=== PATIENT | female | born 1980 | race Caucasian/White ===

== ENCOUNTER 2022-01-15 14:24 | Outpatient (CLI) | payer OTHER, SELFPAY ==
[2022-01-15 21:52] LABS: TSH With Reflex to FT4* < 0.015 uIU/mL (0.270-4.200)
[2022-01-16 00:03] LABS: Free T4 Free Thyroxine* 1.79 ng/dL (0.70-1.85)
== END 2022-01-15 14:25 | disposition home or self-care (01) ==
LOC: NFLDREF 14:25
PROVIDERS: PCP Internal Medicine; Visit Provider Obstetrics & Gynecology
DX: Z01.419 Encounter for gynecological examination (general) (routine) without abnormal findings (principal); E03.9 Hypothyroidism, unspecified; R32 Unspecified urinary incontinence; E66.9 Obesity, unspecified
CPT/HCPCS: 84439; 84443

== ENCOUNTER 2022-03-09 17:42 | Outpatient (CLI) | payer OTHER, SELFPAY ==
--- OUTSIDE RECORDS SUMMARY | 2022-03-09 17:44 | XMS_ITS ---
:1980 Author Organization [facility] Address [address] [place] [address] Care Team Providers Name Role Phone Yarelis Torres Unavailable Unavailable PROBLEMS Type Condition ICD9-CM Code [id number] Code Onset Condition SNO MED Code Dates Status Problem Rectocele N81.6 Active 489931764 Problem Stress N39.3 Active 14146889 incontinence (female) (male) Problem Fecal soiling due R15.9 Active to fecal incontinence Problem Vaginal discharge N89.8 Active 27 9052723 Problem Incomplete R15.0 Active 246440392 defecation Problem Urge urinary N39.41 Active incontinence Problem Full incontinence R15.9 Active 72 571895 of feces Problem Urge incontinence 788.31 Active 87 355209 of urine Problem Uterovaginal N81.2 Active 3955552 02 prolapse, incomplete Problem Mixed N39.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 [address] Jul, [place], [place] [id number] [facility] [address] Jul, After care following [address] [place], [place] [address] genitourinary sy stem Z48.816 [facility] [address] May, After care following [address] [place], [place] [address] genitourinary sy stem Z48.816 [facility] [address] May, After care following [address] [place], [place] [address] genitourinary sy stem Z48.816 [facility] [address] [place] May, [address] [place] [address] [facility] [address] May, [place], [place] [id number] [facility] [address] Mar, [place] [id number] [facility] [address] Mar, Stres s incontinence [address] [place], (female) ( male) N39.3 ; [place] [address] Urge incontinenc e of urine N39.41 ; Incompl ete defecation R15.0 and Rectocele N81.6 [facility] [address] Mar, [address] [address] [facility] [address] Mar, [facility] [address] [place] [address] [facility] [address] Mar, [place], [place] [id number] [facility] [address] Mar, Urina ry incontinence, [facility] [address] [place], unspecifie d type R32 ; [place] [address] Mixed incontinen ce urge and stress N39.4 6 and Rectocele N81.6 [facility] [address] Mar, [place], [place] [phone] [facility] [address] Mar, Mixed incontinence urge [address], and stress N39.46 ; [place] [address] incontinence (fe male) (male) N39.3 ; U rge incontinence of urine N39.41 ; Fecal s oiling due to fecal inconti nence R15.9 ; Incomple te defecation R15.0 and Rectocele N81.6 IMMUNIZATIONS No Known Immunizations SOCIAL HISTORY Qualifiers Date Never Smoker REASON FOR REFERRAL FUNCTIONAL STATUS PLAN OF CARE VITAL SIGNS Height 67.50 in 2018-10-14 Weight 213.2 lbs 2018-10-14 BMI 32.90 kg/m2 2018-10-14 Temperature 98.1 degrees Fahrenheit 2018-05-28 Blood pressure systolic 116 mm Hg 2018-10-14 Blood pressure diastolic 70 mm Hg 2018-10-14 MEDICATIONS Medication Instructions Dosage Frequency Start End Duration Statu s Date Date Oxybutynin Not-Takin g Synthroid 200 Orally Once a 1 tablet on 24h 30 day(s ) Active MCG day an empty stomach in the morning Diflucan 150 Orally Once a 1 tablet 24h May, days Acti ve MG day 2017 Paxil 20 MG Orally Once a 1 tablet in 24h 30 day(s) Active day the morning Ibuprofen oral every 6 1 tab Active 600mg hours as needed Percocet 5-325 Orally every 6 1 tablet as 6h Not-Takin MG hrs needed g Singulair 10 Orally Once a 1 tablet 24h 30 day(s) Ac tive MG day PROCEDURES Procedure Date Ordered Result Body Site CATHETERIZATION COLLECTION SPECIMEN Mar 18, 2018 ELECTRO-UROFLOWMETRY, FIRST Apr 02, 2018 INSERT BLADDER CATHETER September 02, 2018 INTRAABDOMINAL PRESSURE TEST Apr 02, 2018 ANAL/URINARY MUSCLE STUDY Apr 02, 2018 URINALYSIS, AUTO, W/O SCOPE September 02, 2018 URINALYSIS, AUTO, W/O SCOPE Mar 18, 2018 CYSTOMETROGRAM W/SECURITY SYSTEMS TECHNICIAN&UP Apr 02, 2018 URINALYSIS, AUTO, W/O SCOPE Apr 02, 2018 RESULTS Name Result Date Reference Range Urinalysis, Routine - IH Urine Color yellow Yellow - Светлана Appearance clear Clear - Glucose neg Bilirubin neg Ketone neg Specific Delano 1.015 Blood neg pH 7.5 Protein + 15mg Urobilinogen + 1mg Nitrite neg Leukocytes neg Glucose Bilirubin Ketones Specific Delano Occult Blood pH Protein Urobilinogen Nitrite Leukocytes Urinalysis, Routine - IH Urine Color yellow Yellow - Светлана Appearance clear Clear - Glucose neg Bilirubin neg Ketone neg Specific Delano 1.015 Blood neg pH 6.5 Protein neg Urobilinogen 0.2 Nitrite neg Leukocytes neg Glucose Bilirubin Ketones Specific Delano Occult Blood pH Protein Urobilinogen Nitrite Leukocytes Urinalysis, Routine 2018-03-18 Microscopic Examination Urine-Color yellow Yellow - Светлана Appearance clear Clear - Glucose neg Negative - Bilirubin neg Negative - Ketones neg Negative - Specific Delano 1.025 1.000 - 1.030 Occult Blood neg Negative - pH 6.5 5.0 - 7.0 Protein neg Negative - Urobilinogen 1mg 0.2 - 1.0 mg/dL Nitrite, Urine neg Negative - Leukocytes neg Negative - Urinalysis Gross Exam REASON FOR VISIT Insurance Providers [facility] Health Member Patient Patient Patient Patient Patient Subscriber Subscriber Subscriber Group Insurance Plan Plan Plan Plan ID Relationship Address Phone Name Date of ID Name Date of No Type Insurance Insurance Insurance Coverage to Subscriber Address Phone Name Dates Preferred [address] Preferred self Tez [id number] One [facility] [address] [id number] MEDICAL (GENERAL) HISTORY Type Description Date Medical History High Cholesterol Medical History Bladder Infections Medical History Chicken pox Medical History Migraines Medical History Depression/ Anxiety Medical History Asthma Medical History Pneumonia Medical History Thyroid Problem Surgical History Jaw Surgery 03/1997 Surgical History MIDURETHRAL SLING, CYSTOSCOPY, RECTOCELE REPAIR with 05/26/2018 Melissa
--- OUTSIDE RECORDS SUMMARY | 2022-03-09 17:44 | XMS_ITS | Clinical Summary ---
:1980 Author Organization [id number] [place] [address] Care Team Providers Name Role Phone Prince Mayorga MD Primary Care Provider [phone] Allergies Active Allergy Reactions Severity Noted Date Comments Venlafaxine Analogues Other - Describe In Comment Field 06/26/2013 sweating Sertraline Diarrhea 06/26/2013 Medications Medication Sig Dispensed Refills Start Date End Date Status CALCIUM 600 MG CAP Once daily 0 03/20/2007 Active MULTIVITAMIN TAB take 1 tablet by 0 02/02/2008 Active oral route once daily with food flaxseed-omega3,6,9-fa Take 1,200 mg by 200 capsule 0 03/08/20 11 Active tty acid 1,200-540-132 mouth 2 times mg Cap daily and at bedtime. vitamin B complex Take 1 tablet by 200 tablet 0 03/08/2011 Active (VITAMIN B COMPLEX) mouth once tablet daily. tretinoin 0.05 % 0.05 Apply topically 90 g 3 06/29/2020 Active % creamIndications: to affected Keratosis pilaris area(s) at bedtime. busPIRone (BUSPAR) 15 Take 15 mg by 0 06/01/2021 Active mg tablet mouth 2 times daily. norethindrone, Take 1 Tablet 84 Tablet 3 06/27/2021 Active Contraceptive, (0.35 mg) by (MICRONOR, 28,) 0.35 mouth once mg tabletIndications: daily. In place Dysmenorrhea of Qian SUMAtriptan (IMITREX) Take 1-2 Tablets 27 Tablet 3 06/27/2021 Active 50 mg (50-100 mg) by tabletIndications: mouth every 2 Migraine syndrome hours if needed for Migraine. Give at minimum 2hrs apart. Max Dose: 200mg per 24hrs. ondansetron (ZOFRAN Place 1 Tablet 30 Tablet 1 07/31/2021 Active ODT) 4 mg (4 mg) on the disintegrating tongue every 8 tabletIndications: hours if needed Migraine syndrome for Nausea/Vomiting. montelukast Take 1 Tablet 90 Tablet 3 07/31/2021 Act xu (SINGULAIR) 10 mg (10 mg) by mouth tabletIndications: at bedtime. Other allergic rhinitis, Allergy-induced asthma, mild intermittent, uncomplicated cholecalciferol, Take 2 Tablets 0 07/31/2021 Active Vitamin D3, (Vitamin (10,000 units) D-3) 5,000 unit tab by mouth once tabletIndications: daily. Vitamin D deficiency fluticasone Inhale 1 Puff by 3 Each 3 07/31/2021 Active propion-salmeteroL mouth every 12 (Advair Diskus) 500-50 hours. mcg/Dose diskus inhalerIndications: Allergy-induced asthma, mild intermittent, uncomplicated Synthroid 150 mcg Take 1 Tablet 90 Tablet 0 01/16/2022 Active tabletIndications: (150 mcg) by Other specified mouth before hypothyroidism breakfast. Take 1 every other day and alternate with 175 mcg every other day Active Problems Problem Noted Date Migraine syndrome 06/27/2021 Allergy-induced asthma, mild intermittent, uncomplicat ed 07/30/2017 Other allergic rhinitis 07/30/2017 Mixed hyperlipidemia 07/30/2017 Recurrent major depressive disorder, in partial remiss ion 10/07/2015 Anxiety 05/11/2014 Keratosis pilaris 06/03/2012 Vitamin D deficiency 08/16/2009 IBS (irritable bowel syndrome) 05/06/2008 Other specified hypothyroidism Resolved Problems Problem Noted Date Resolved Date Major depressive disorder, recurrent episode, unspecified 10/07/2015 Allergic rhinitis, cause unspecified Encounters Date Type Specialty Care Team Description 01/16/2022 Telephone Prince Mayorga MD Ri dication Management 01/16/2022 Lab Requisition Jaylin Negrete MD 01/15/2022 Orders Only Scanner <No scans attac hed> 12/14/2021 Telephone Prince Mayorga MD La b 12/13/2021 Orders Only Lab, [facility] 12/13/2021 Travel from Last 3 Months Immunizations Name Administration Dates Next Due AMB Influenza, IIV4 PF (=>6 mos 04/20/2016, 05/07/2014 Flulaval,Fluzone Fluarix)(Flu Clinic Only) COVID-19 vaccine ([employer] 07/26/2020, 06/28/2020 30mcg/0.3mL) PF, MDV Hepatitis B (Adult) 08/10/2002, 02/06/2002, 01/06/2002 Influenza RIV4 (Age 18+ Years) 04/01/2019 PRESERV FREE Influenza, IIV3 (Age >=3 years) 05/07/2020, 03/31/2018, 04/01, 06/03/2012, 03/18/2009, 04/28/2004 Influenza, IIV4 04/08/2017, 04/20/2016, 04/06/2015, 05/07/2014 Influenza, IIV4 (=>6mos) MDV 03/29/2021 Td (Age >=7 Years) 03/25/2003 Td, Preservative Free (age >= 7 09/21/2014 Years) Tdap 12/13/2009 Family History Medical History Relation Name Comments Hyperlipidemia Father Hypertension Father Other Father migraine Arthritis Maternal Grandmother Cancer-breast Maternal Grandmother late 60's Osteoporosis Maternal Grandmother Other Maternal Grandmother glaucoma Arthritis Mother Osteoporosis Mother Other Mother migraine/emphyse ma Stroke Paternal Grandfather Diabetes Paternal Grandmother Heart Disease Paternal Grandmother heart attac k 80's Other Sister chronic bronchit is Relation Name Status Comments Father Maternal Grandmother Mother Paternal Grandfather Paternal Grandmother Sister Social History Tobacco Use Types Packs/Day Years Used Date Former Smoker Quit: 07/01/19 Smokeless Tobacco: Never Used Tobacco Cessation: Counseling Given: Yes Alcohol Use Standard Drinks/Week Comments No 0 (1 standard drink = 0.6 oz pure alcoho l) Sex Assigned at Date Recorded Female 09/26/2020 7:44 AM CDT Obstetrics History Para Term AB IAB SAB Ectopic Multiple Living Live Births 4 2 2 1 1 2 Date Outcome GA Total Labor/2nd/3rd Weight Sex Delivery Anes PTL Kristin A 1 A5 Name Clin Labor Para Para IAB SAB Last Filed Vital Signs Vital Sign Reading Time Taken Comments Blood Pressure 114/77 07/31/2021 4:13 PM SOCIOCULTURAL ANTHROPOLOGY PROFESSOR Pulse 88 07/31/2021 4:13 PM SOCIOCULTURAL ANTHROPOLOGY PROFESSOR Temperature 36.6 ??C (97.9 ??F) 05/19/2018 8:48 AM SOCIOCULTURAL ANTHROPOLOGY PROFESSOR Respiratory Rate - - Oxygen Saturation 100% 07/31/2021 4:13 PM SOCIOCULTURAL ANTHROPOLOGY PROFESSOR Inhaled Oxygen Concentration - - Weight 96.6 kg (212 lb 14.4 oz) 07/31/2021 4:13 PM SOCIOCULTURAL ANTHROPOLOGY PROFESSOR Height 175.3 cm (5' 9) 07/31/2021 4:13 PM SOCIOCULTURAL ANTHROPOLOGY PROFESSOR Body Mass Index 31.44 07/31/2021 4:13 PM SOCIOCULTURAL ANTHROPOLOGY PROFESSOR Plan of Treatment Health Maintenance Due Date Last Done Comments Pneumococcal series for age 19-64 1984 (1 - PCV) Hepatitis C screening for age 1105/20/1996 18-79 Influenza for age 9-49 03/01/2022 03/29/2021, 05/07/2020, 04/01/2019, Additional history exists BMI (ht and wt on same day) for 07/31/2022 07/31/2021, 03/2 03/2021, age 18+ 06/29/2020, Additional history exists Depression screening for age 12+ 08/02/2022 08/02/2021, , 12/24/2020, Additional history exists Tetanus booster 09/21/2024 09/21/2014, 12/13/2009, 03/25/2003 Pap test for age 21-65 01/15/2025 01/15/2022, 01/15/2022, 01/18/2016, Additional history exists Tdap Completed 12/13/2009, 12/13/2009 COVID-19 vaccine series Completed 03/29/2021, 07/26/2020, 06/28/2020 Procedures Procedure Name Priority Date/Time Associated Diagnosis Comme nts LAB TRACKING EVENT Routine 01/15/2022 1:45 PM CDT CAT CRACKER OPERATOR THIN PREP PAP Routine 01/15/2022 1:45 PM Resu lts for this SCREEN IMAGED CDT procedure are in the results section. HPV THIN PREP Routine 01/15/2022 1:45 PM Results for this CDT procedure are i n the results section. SCAN-LABORATORY 01/15/2022 12:00 Results for this REPORT AM CDT procedure are i n the results section. TSH Routine 12/13/2021 8:29 AM Other specified Result s for this CDT hypothyroidism procedure are in the results section. from Last 3 Months Results LAB TRACKING EVENT (01/15/2022 1:45 PM CDT) Specimen Anatomical Collection Method Collection Time Receive d Time (Source) Location / / Volume Laterality Other (Other) Client Collect / 01/15/2022 1:45 PM 12/29 4:17 Unknown CDT PM CDT Jaylin Negrete MD LAB BILL ONLY Performing Organization Address City/State/ZIP Code Phon e Number [employer] [address] [place] [address] LABORATORY-CENTRAL 2000 LABORATORY CAT CRACKER OPERATOR THIN PREP PAP SCREEN IMAGED (01/15/2022 1:45 PM CDT) Component Value Ref Test Analysis Performed At [facility] gist Range Method Time Signature Case Report Gynecologic Cytology Report ? Case: [id number] ? 01/31/2022 [facility] Authorizing Provider: ??Jaylin Camacho ?Collected: ? 01/15/2022 1345 ? 2:11 PM HEAL TH ? MD Allison ? CDT LABORATORY-C Ordering Location: ? [facility] CENTRAL LAB ?Received: ?01/18/2022 1625 ? EN TRAL First Screen: ? [place] ? LABORATORY Specimen: ?CAT CRACKER OPERATOR ThinPrep Vial Screening, Cervical ? INTERPRETATI NEGATIVE FOR (none) 01/31/2022 [facility] Nessa ctronically ON/RESULT INTRAEPITHELIAL 2:11 PM HEALTH sign ed by LESION OR CDT LABORATORY-C Tania MALIGNANCY (NIL) ENTRAL Chr istopher A on LABORATORY 01/31/2022 at 2:11 PM SPECIMEN Satisfactory for evaluation 01/31/2022 [facility] ADEQUACY Endocervical component present 2:11 PM HEALTH CDT LABORATORY-C ENTRAL LABORATORY HPV REQUEST HPV and PAP 01/31/2022 [facility] 2:11 PM HEALTH CDT LABORATORY-C ENTRAL LABORATORY Date of LMP 01/31/2022 [facility] 2:11 PM HEALTH CDT LABORATORY-C ENTRAL LABORATORY Comment: unknown Last Pap Date 01/31/2022 2:11 PM CDT [facility] LABORAT[facility]-CENTRAL LABORATORY Comment: 2020 Last Pap Result NIL 01/31/2022 2:11 PM [facility] CDT LABORATORY-CENTRAL LABORATORY Abnormal Pap or Freedom No 01/31/2022 2:11 PM [facility] Bx in last 5 years CDT LABORATORY- CENTRAL LABORATORY Menstrual Status Regular Periods 01/31/2022 2:11 P M [facility] CDT LABORATORY-CENTRAL LABORATORY Freedom Bx Done Today No 01/31/2022 2:11 PM [facility] CDT LABORATORY-CENTRAL LABORATORY Additional 01/31/2022 2:11 PM [facility] Information CDT LABORATORY-CENTRAL LABORATORY Comment: Interpreted at [facility], Central Laboratory - [address], [place] [address] Automated Review Successful 01/31/2022 2:11 PM CDT [facility] LABORATORY-CENTRAL L ABORATORY Comment: Specimen processed successfully by automated baggage porter device, ThinPrep Imaging System, [employer] ANCILLARY TESTING HPV Ordered, 01/31/2022 2:11 PM [facility] CAT CRACKER OPERATOR Please see CDT LABORATORY-CENTRAL separate report LABORATORY Note The pap test is a 01/31/2022 2:11 PM [facility] screening CDT LABORATORY-CENTRAL technique, not a LABORATORY diagnostic procedure. It is used primarily to screen for squamous cancers and precursor lesions. Published studies have shown that it is subject to both false negative and false positive results. The pap test should not be used as the sole means to diagnose or exclude pre-malignant and malignant lesions. Specimen Anatomical Collection Method Collection Time Receive d Time (Source) Location / / Volume Laterality Other (Cervical) 01/15/2022 1:45 PM 01/18 4:25 CDT PM CDT Jaylin Negrete MD PATHOLOGY/CYTOLOGY Performing Organization Address City/[facility] Code Phon e Number [facility] [address] [place] [id number] LABORATORY-CENTRAL 2000 LABORATORY HPV HIGH RISK (01/15/2022 1:45 PM CDT) Analysis Performed At Patho logist Time Signature TYPE 16 Negative Negative 01/22/2022 [facility] 12:24 PM CDT LABORATORY-STEPHANIE TRAL LABORATORY TYPE 18 Negative Negative 01/22/2022 [facility] 12:24 PM CDT LABORATORY-STEPHANIE TRAL LABORATORY OTHER HIGH Negative Negative 01/22/2022 [facility] RISK TYPES 12:24 PM CDT LABORATORY-STEPHANIE TRAL LABORATORY Specimen Anatomical Collection Method Collection Time Receive d Time (Source) Location / / Volume Laterality Other (Cervical) 01/15/2022 1:45 PM 01/18 4:25 CDT PM CDT Narrative [facility] LABORATORY-CENTRAL LABORAT ORY - 01/22/2022 12:24 PM CDT HPV types 16, 18, 31, 33, 35, 39, 45, 51, 52, 56, 58, 59, 66 and 68 DNA were undetectable or below the pre-set threshold. Methodology: Colt Danielle 4800 HPV Test Jaylin Negrete MD MICROBIOLOGY Performing Organization Address City/[facility] Phon e Number [facility] [employer] [address] [place] [address] LABORATORY-CENTRAL 2000 LABORATORY SCAN-LABORATORY REPORT (01/15/2022 12:00 AM CDT) Narrative This result has an attachment that is no t available. Scanner OTHER TSH (12/13/2021 8:29 AM CDT) athologist Signature TSH 12/14/2021 [facility] 9:47 AM CDT LABORATORY-CENTR AL LABORATORY Comment: Canceled- Quantity not sufficient(QNS) This is a corrected result. Previously r eported as 0.01 uIU/mL with reference range 0.35-4.94 uIU/mL on 12/13/2021 at 1920 CDT Specimen Anatomical Collection Method Collection Time Receive d Time (Source) Location / / Volume Laterality Blood BLOOD SPECIMEN / Capillary / 12/13/2021 8:29 AM 12/13 8:29 Unknown Unknown CDT AM CDT Narrative [facility] LABORATORY-CENTRAL LABORAT ORY - 12/14/2021 9:47 AM CDT In Adults, TSH values between 5.00 and 10.00 uIU/ml do not necessarily indicate the presence of Hyp othyroidism. Correlation with clinical findings such as presence of goiter and/or Thyroperoxidase (TPO) Antibody ma y be helpful. For more information please refer to JAN 20 04; 291: 228-238. Canceled- Quantity not sufficient(QNS) Prince Mayorga MD CHEMISTRY Performing Organization Address City/State/ZIP Code Phon e Number [facility] [employer] [address] 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
== END 2022-03-09 17:43 | disposition home or self-care (01) ==
LOC: LKVREF 17:42
PROVIDERS: PCP Family Medicine; Visit Provider Registered Nurse
DX: R30.0 Dysuria (principal); N30.90 Cystitis, unspecified without hematuria
CPT/HCPCS: 87086

== ENCOUNTER 2022-04-23 13:18 | Outpatient (CLI) | payer OTHER, SELFPAY ==
--- OUTSIDE RECORDS SUMMARY | 2022-04-23 13:23 | XMS_ITS | Clinical Summary ---
:1980 Author Organization [facility] [place] [address] Care Team Providers Name Role Phone Hardik Fan MD Primary Care Provider Allergies Active Allergy Reactions Severity Noted Date Comments Venlafaxine Analogues Other - Describe In Comment Field 06/26/2013 sweating Sertraline Diarrhea 06/26/2013 Medications Medication Sig Dispensed Refills Start End Date Status Date CALCIUM 600 MG CAP Once daily 0 Active 7 MULTIVITAMIN TAB take 1 tablet 0 Active by oral route 8 once daily with food flaxseed-omega3,6,9 Take 1,200 mg 200 capsule 0 Active -fatty acid by mouth 2 1 1,200-540-132 mg times daily Cap and at bedtime. vitamin B complex Take 1 tablet 200 tablet 0 Active (VITAMIN B COMPLEX) by mouth once 1 tablet daily. tretinoin 0.05 % Apply 90 g 3 Act xu 0.05 % topically to 0 creamIndications: affected Keratosis pilaris area(s) at bedtime. busPIRone (BUSPAR) Take 15 mg by 0 Active 15 mg tablet mouth 2 times 1 daily. norethindrone, Take 1 Tablet 84 Tablet 3 A ctive Contraceptive, (0.35 mg) by 1 (MICRONOR, 28,) mouth once 0.35 mg daily. In tabletIndications: place of Dysmenorrhea Qian SUMAtriptan Take 1-2 27 Tablet 3 Active (IMITREX) 50 mg Tablets 1 tabletIndications: (50-100 mg) Migraine syndrome by mouth every 2 hours if needed for Migraine. Give at minimum 2hrs apart. Max Dose: 200mg per 24hrs. ondansetron (ZOFRAN Place 1 30 Tablet 1 Active ODT) 4 mg Tablet (4 mg) 2 disintegrating on the tongue tabletIndications: every 8 hours Migraine syndrome if needed for Nausea/Vomiti ng. montelukast Take 1 Tablet 90 Tablet 3 Acti ve (SINGULAIR) 10 mg (10 mg) by 2 tabletIndications: mouth at Other allergic bedtime. rhinitis, Allergy-induced asthma, mild intermittent, uncomplicated fluticasone Inhale 1 Puff 3 Each 3 Acti ve propion-salmeteroL by mouth 2 (Advair Diskus) every 12 500-50 mcg/Dose hours. diskus inhalerIndications: Allergy-induced asthma, mild intermittent, uncomplicated cholecalciferol, Take this 0 Act xu Vitamin D3, dose every 2 (Vitamin D-3) 5,000 day unit tab tabletIndications: Vitamin D deficiency levothyroxine Take 1 Tablet 90 Tablet 1 Ac tive (SYNTHROID) 137 mcg (137 mcg) by 2 tabletIndications: mouth before Other specified breakfast. hypothyroidism cholecalciferol, Take 2 0 04/12/20 Dis continued Vitamin D3, Tablets 2 22 (Reorder (Vitamin D-3) 5,000 (10,000 (E-cancel not unit tab units) by sent)) tabletIndications: mouth once Vitamin D daily. deficiency Synthroid 150 mcg Take 1 Tablet 90 Tablet 0 04/12/20 Discontinued tabletIndications: (150 mcg) by 2 22 (Reorder Other specified mouth before ( E-cancel not hypothyroidism breakfast. sent )) Take 1 every other day and alternate with 175 mcg every other day Synthroid 150 mcg Take 1 Tablet 90 Tablet 0 04/12/20 Discontinued tabletIndications: (150 mcg) by 2 22 (Reorder Other specified mouth before ( E-cancel not hypothyroidism breakfast. sent )) Take 1 every other day and alternate with 175 mcg every other day cholecalciferol, Take this bang 0 04/12/20 Discontinued Vitamin D3, every other 2 22 (Reord er (Vitamin D-3) 5,000 day (E-cancel not unit tab sent)) tabletIndications: Vitamin D deficiency cholecalciferol, Take this 0 04/13/20 Dis continued Vitamin D3, dose every 2 22 (Reorde r (Vitamin D-3) 5,000 other day (E-cancel not unit tab sent)) tabletIndications: Vitamin D deficiency Synthroid 150 mcg Take 1 Tablet 90 Tablet 3 04/19/20 Discontinued tabletIndications: (150 mcg) by 2 22 (Reorder Other specified mouth before ( E-cancel not hypothyroidism breakfast. sent )) Active Problems Problem Noted Date Prediabetes 04/12/2022 Migraine syndrome 06/27/2021 Allergy-induced asthma, mild intermittent, [...] Encounters Date Type Specialty Care Team Description 04/13/2022 E-Visit Jada, Provider 04/12/2022 Office Visit Prince Mayorga MD [place] dication Management 04/12/2022 Travel 04/09/2022 Travel from Last 3 Months Immunizations Name Administration Dates Next Due AMB Influenza, IIV4 PF (=>6 mos 04/20/2016, 05/07/2014 Flulaval,Fluzone Fluarix)(Flu Clinic Only) COVID-19 vaccine (Functional Neuromodulation 03/28/2022 30mcg/0.3mL) 12YO+ BIVALENT BOOSTER PF, MDV COVID-19 vaccine (Functional Neuromodulation 07/26/2020, 06/28/2020 30mcg/0.3mL) PF, MDV Hepatitis B (Adult) 08/10/2002, 02/06/2002, 01/06/2002 Influenza RIV4 (Age 18+ Years) 04/01/2019 PRESERV FREE Influenza, IIV3 (Age 6-35 mos) 04/06/2020, 04/02/2018 Influenza, IIV3 (Age >=3 years) 05/07/2020, 03/31/2018, [...] Date Recorded Female 09/26/2020 7:44 AM CDT COVID-19 Exposure Response Date Recorded In the last 10 days, have you been in contact with No / Unsu re 04/12/2022 9:27 AM CDT someone who was confirmed or suspected to have Coronavirus/COVID-19? Obstetrics History Para Term AB IAB SAB Ectopic Multiple Living Live Births 4 2 2 1 1 2 Date Outcome GA Total Labor/2nd/3rd Weight Sex Delivery Anes PTL Kristin A 1 A5 Name Clin Labor Para Para IAB SAB Last Filed Vital Signs Vital Sign Reading Time Taken Comments Blood Pressure 116/77 04/12/2022 9:33 AM CDT Pulse 77 04/12/2022 9:33 AM CDT Temperature 36.6 ??C (97.9 ??F) 05/19/2018 8:48 AM CUFF RUNNER Respiratory Rate - - Oxygen Saturation 99% 04/12/2022 9:33 AM CDT Inhaled Oxygen Concentration - - Weight 90.3 kg (199 lb) 04/12/2022 9:33 AM CDT Height 175.3 cm (5' 9) 04/12/2022 9:33 AM CDT Body Mass Index 29.39 04/12/2022 9:33 AM CDT Plan of Treatment Health Maintenance Due Date Last Done Comments Pneumococcal series for age 19-64 1984 (1 - PCV) Hepatitis C screening for age 1105/20/1996 18-79 Influenza for age 9-49 03/01/2022 03/29/2021, 05/07/2020, 04/01/2019, Additional history exists Depression screening for age 12+ 08/02/2022 08/02/2021, , 12/24/2020, Additional history exists BMI (ht and wt on same day) for 04/12/2023 04/12/2022, 07/03, age 18+ 09/26/2020, Additional history exists Tetanus booster 09/21/2024 09/21/2014, 12/13/2009, 03/25/2003 Pap test for age 21-65 01/15/2025 01/15/2022, 01/15/2022, 01/18/2016, Additional history exists Tdap Completed 12/13/2009, 12/13/2009 COVID-19 vaccine series Completed 03/28/2022, 03/29/2021, 07/26/2020, Additional history exists Procedures Procedure Name Priority Date/Time Associated Diagnosis Comme nts HEMOGLOBIN A1C Routine 04/12/2022 10:11 Prediabetes Results f or this SCREENING AM CDT procedure are i n the results section. VITAMIN D 25 Routine 04/12/2022 10:11 Vitamin D deficiency Res ults for this (DEFICIENCY) AM CDT procedure are i n the results section. LIPID PANEL W Routine 04/12/2022 10:11 Mixed hyperlipidemia Re sults for this REFLEX MEASURED LDL AM CDT procedur e are in the results section. TSH Routine 04/12/2022 10:11 Other specified Results for this AM CDT hypothyroidism procedure are in the results section. from Last 3 Months Results HEMOGLOBIN A1C SCREENING (04/12/2022 10:11 AM CDT) P athologist Signature HEMOGLOBIN A1C 5.0 <=6.4 % 04/13/2022 [facility] SCREENING 12:25 PM CDT LABORATORY Specimen Anatomical Collection Method / Collection Time Recei jaron Time (Source) Location / Volume Laterality Blood BLOOD SPECIMEN / Venipuncture / 04/12/2022 10:11 04/12 Unknown Unknown AM CDT 10:11 AM CDT Narrative [facility] - 04/13/2022 12:25 PM CDT ? (<5.7%) ?Normal ? (5.7% to 6.4%) ? Indicates pr ediabetes ? (>=6.5%) ? Confirms diabetes Falsely low levels may be seen with: Recent Transfusion, Recent Significant B lood Loss, Hemolytic Diseases, or Falsely elevated levels may be seen with : Untreated Anemias, Splenectomy Prince Mayorga MD CHEMISTRY Performing Organization Address City/State/ZIP Code Phon e Number [facility] SENDOUT INTERNAL ZIP [place] [id number] [place] [address] LIPID PANEL W REFLEX MEASURED LDL (04/12/2022 10:11 AM CDT) Patholo gist Method Time Signature CHOLESTEROL,TOTAL 179 100 - 199 04/13/2022 [facility] mg/dL 3:15 AM CDT LABORATORY-[facility] TRIGLYCERIDES 87 <150 04/13/2022 [facility] mg/dL 3:15 AM CDT [facility]AT[facility] HDL CHOLESTEROL 44 >40 mg/dL 04/13/2022 [facility] 3:15 AM CDT [facility]AT[facility] NON-HDL 135 <145 04/13/2022 [facility] CHOLESTEROL mg/dl 3:15 AM CDT [facility]ATORY[facility] CHOL/HDL RATIO 4.07 <4.50 04/13/2022 [facility] 3:15 AM CDT [facility] LDL CHOLESTEROL 118 <=130 04/13/2022 [facility] mg/dL 3:15 AM CDT [facility]ATORY[facility] VLDL CHOLESTEROL 17 <=30 04/13/2022 [facility] mg/dL 3:15 AM CDT [facility] PROVIDER ORDERED RANDOM 04/13/2022 [facility] STATUS 3:15 AM CDT LAB[facility]AT[facility] Specimen Anatomical Collection Method / Collection Time Recei jaron Time (Source) Location / Volume Laterality Blood BLOOD SPECIMEN / Venipuncture / 04/12/2022 10:11 04/12 Unknown Unknown AM CDT 10:11 AM CDT Prince Mayorga MD CHEMISTRY Performing Organization Address City/[facility] Phon e Number [facility] [address] [place] [address] LABORATORY-CENTRAL 2000 LABORATORY (ABNORMAL) VITAMIN D 25 (DEFICIENCY) (04/12/2022 10:11 AM CDT) Analysis Performed At Patho logist Time Signature VITAMIN D 26.0 (L) 30.0 - 04/13/2022 [facility] TOTAL 80.0 ng/mL 3:41 AM CDT LABORATORY-[facility] LABOR[facility] Specimen Anatomical Collection Method / Collection Time Recei jaron Time (Source) Location / Volume Laterality Blood BLOOD SPECIMEN / Venipuncture / 04/12/2022 10:11 04/12 Unknown Unknown AM CDT 10:11 AM CDT Narrative [facility] LABORATORY-CENTRAL LABORAT ORY - 04/13/2022 3:41 AM CDT Deficiency: ? <20 ng/mL Insufficiency: ?20-29 ng/mL Sufficiency: ?30-80 ng/mL Possible Toxicity: ??>80 ng/mL Based on [facility] recommend ations Prince Mayorga MD SEND OUTS Performing Organization Address City/[facility] Phon e Number [facility] [address] [place] [address] LABORATORY-CENTRAL 1999 LABORATORY (ABNORMAL) TSH (04/12/2022 10:11 AM CDT) P athologist Signature TSH <0.01 (L) 0.35 - 04/13/2022 [facility] 4.94 5:27 AM CDT LABORATORY-CENT uIU/mL RAL LABORATORY Specimen Anatomical Collection Method / Collection Time Recei jaron Time (Source) Location / Volume Laterality Blood BLOOD SPECIMEN / Venipuncture / 04/12/2022 10:11 04/12 Unknown Unknown AM CDT 10:11 AM CDT Narrative [facility] LABORATORY-CENTRAL LABORAT ORY - 04/13/2022 5:27 AM CDT In Adults, TSH values between 5.00 and 10.00 uIU/ml do not necessarily indicate the presence of Hyp othyroidism. Correlation with clinical findings such as presence of goiter and/or Thyroperoxidase (TPO) Antibody ma y be helpful. For more information please refer to JAN 20 ; 291: 228-238. Prince Mayorga MD CHEMISTRY Performing Organization Address City/State/ZIP Code Phon e Number [facility] [address] 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
--- OUTSIDE RECORDS SUMMARY | 2022-04-23 13:23 | XMS_ITS ---
:1980 Author Organization [facility] Address [address] [place] [address] Care Team Providers Name Role Phone Yarelis Torres Unavailable Unavailable PROBLEMS Type Condition ICD9-CM Code MEA23-IT Code Onset Condition SNO MED Code Dates Status Problem Rectocele N81.6 Active 816538594 Problem Stress N39.3 Active 87281635 incontinence (female) (male) Problem Fecal soiling due R15.9 Active to fecal incontinence Problem Vaginal discharge N89.8 Active 27 4058355 Problem Incomplete R15.0 Active 731645902 defecation Problem Urge urinary N39.41 Active incontinence Problem Full incontinence R15.9 Active 72 456018 of feces Problem Urge incontinence 788.31 Active 87 891142 of urine Problem Uterovaginal N81.2 Active 8328530 02 prolapse, incomplete Problem Mixed N39.46 Active 257484694 incontinence urge and stress Problem Urge incontinence N39.41 Active 87 654566 of urine ALLERGIES No Known Allergies ENCOUNTERS Encounter Location Date Diagnosis [facility] [address] Sep, Urge urinary incontinence [address] [place], N39.41 [place] [address] discharge N89.8 [facility] [address] Aug, Urge urinary incontinence [address] [place], [place]39.41 [place] [address] discharge N89.8 [facility] [address] Jul, [place], [place] [id number] [facility] [address] Jul, After care following [address] [place], [place] [address] genitourinary sy stem Z48.816 [facility] [address] May, After care following [address] [place], [place] [address] genitourinary sy stem Z48.816 [facility] [address] May, After care following [address] [place], [place] [address] genitourinary sy stem Z48.816 [facility] [address] [place] May, [address] [place] [phone] [facility] [address] May, [place], [place] [phone] [facility] [address] Mar, [place], [place] [phone] [facility] [address] Mar, Stres s incontinence [address] [place], (female) ( male) N39.3 ; [place] [address] Urge incontinenc e of urine N39.41 ; Incompl ete defecation R15.0 and Rectocele N81.6 [facility] [address] Mar, [address] [address] [facility] [address] Mar, [facility] [address] [place] [address] [facility] [address] Mar, [place], [place] [phone] [facility] [address] Mar, Urina ry incontinence, [facility] [address] [place], unspecifie d type R32 ; [place] [address] Mixed incontinen ce urge and stress N39.4 6 and Rectocele N81.6 [facility] [address] Mar, [place], [place] [phone] [facility] [address] Mar, Mixed incontinence urge [address], and stress N39.46 ; [place] [address] incontinence (fe male) (male) N39.3 ; U [...] Orally Once a 1 tablet 24h May, 2 days Acti ve MG day 2017 Paxil [...] PROCEDURES Procedure Date Ordered Result Body Site ELECTRO-UROFLOWMETRY, FIRST Apr 02, 2018 CATHETERIZATION COLLECTION SPECIMEN Mar 18, 2018 INTRAABDOMINAL PRESSURE TEST Apr 02, 2018 CYSTOMETROGRAM W/LUMBER PULLER&UP Apr 02, 2018 ANAL/URINARY MUSCLE STUDY Apr 02, 2018 URINALYSIS, AUTO, W/O SCOPE Mar 18, 2018 URINALYSIS, AUTO, W/O SCOPE September 02, 2018 INSERT BLADDER CATHETER September 02, 2018 URINALYSIS, AUTO, W/O SCOPE Apr 02, 2018 RESULTS Name Result Date Reference Range Urinalysis, Routine - IH Urine Color yellow Yellow - Светлана Appearance clear Clear - Glucose neg Bilirubin neg Ketone neg Specific [place] 1.015 Blood neg pH 7.5 Protein + 15mg Urobilinogen + 1mg Nitrite neg Leukocytes neg Glucose Bilirubin Ketones Specific [place] Occult Blood pH Protein Urobilinogen Nitrite Leukocytes Urinalysis, Routine - IH Urine Color yellow Yellow - Светлана Appearance clear Clear - Glucose neg Bilirubin neg Ketone neg Specific [place] 1.015 Blood neg pH 6.5 Protein neg Urobilinogen 0.2 Nitrite neg Leukocytes neg Glucose Bilirubin Ketones Specific [place] Occult Blood pH Protein Urobilinogen Nitrite Leukocytes Urinalysis, Routine 2018-03-18 Microscopic Examination Urine-Color yellow Yellow - Светлана Appearance clear Clear - Glucose neg Negative - Bilirubin neg Negative - Ketones neg Negative - Specific [place] 1.025 1.000 - 1.030 Occult Blood neg Negative - pH 6.5 5.0 - 7.0 Protein neg Negative - Urobilinogen 1mg 0.2 - 1.0 mg/dL Nitrite, Urine neg Negative - Leukocytes neg Negative - Urinalysis Gross Exam REASON FOR VISIT Insurance Providers [facility] Member Patient Patient Patient Patient Patient Subscriber Subscriber Subscriber Group Insurance Plan Plan Plan Plan ID Relationship Address Phone Name Date of ID Name Date of No Type Insurance Insurance Insurance Coverage to Subscriber Address Phone Name Dates Preferred [address] Preferred self Tez [id number] One [facility] [address] [id number] MEDICAL (GENERAL) HISTORY Type Description Date Medical History High Cholesterol Medical History Bladder Infections Medical History Chicken pox Medical History Migraines Medical History Depression/ Anxiety Medical History Asthma Medical History Pneumonia Medical History Thyroid Problem Surgical History Jaw Surgery 03/1997 Surgical History MIDURETHRAL SLING, CYSTOSCOPY, RECTOCELE REPAIR with 05/26/2018 Melissa
--- NOTE | 2022-04-23 13:40 | CRLHL7_ITS ---
For Patients: As a result of the Cures Act, medical imaging exams and procedure reports are released immediately into your electronic medical record. You may view this report before your referring provider. If you have questions, please contact your health care provider. BILATERAL SCREENING MAMMOGRAM WITH COMPUTER-AIDED DETECTION AND TOMOSYNTHESIS TECHNIQUE: CC and MLO views were obtained. These mammographic images have been obtained using full-field digital technique. These mammographic images were interpreted with the benefit of computer-aided detection. Breast Tomosynthesis was used in this interpretation. COMPARISON FILM: 04/21/2021, 04/20/2020, 04/15/2019. FINDINGS: There are scattered areas of fibroglandular density IMPRESSION: There is no radiographic evidence for malignancy. ASSESSMENT: BI-RADS Category 1: Negative RECOMMENDATION: Routine screening mammogram in 1 year. A lay language report of this examination will be provided to the patient. Charles Bush M.D. Diagnostic/Musculoskeletal Radiologist [email or web address] [place] Transcribed: 5:17 p.ricardo maxwell/Dictated by: Charles Bush MD @ 04/24/2022 7:56:00 AM (Electronically Signed)
== END 2022-04-23 13:19 | disposition home or self-care (01) ==
LOC: MAMMO 13:21
PROVIDERS: PCP Family Medicine; Visit Provider Obstetrics & Gynecology
DX: Z12.31 Encounter for screening mammogram for malignant neoplasm of breast (principal)
CPT/HCPCS: 77063; 77067

== ENCOUNTER 2023-05-06 13:00 | Outpatient (CLI) | payer OTHER, SELFPAY ==
--- NOTE | 2023-05-06 13:00 | CRLHL7_ITS ---
For Patients: As a result of the Cures Act, medical imaging exams and procedure reports are released immediately into your electronic medical record. You may view this report before your referring provider. If you have questions, please contact your health care provider. BILATERAL DIGITAL SCREENING MAMMOGRAM WITH COMPUTER-AIDED DETECTION WITH TOMOSYNTHESIS CLINICAL HISTORY: Routine screening exam. COMPARISON: 04/23/2022, 04/21/2021, 04/20/2020. TECHNIQUE: Digital mammogram in CC and MLO projections including computer-aided detection (CAD). Tomosynthesis was used. BREAST COMPOSITION: The breasts are heterogeneously dense, which may obscure small masses. FINDINGS: RIGHT Breast: Nodular density within the medial breast 2 cm from the nipple. LEFT Breast: No suspicious findings. IMPRESSION: RIGHT breast asymmetry/mass. RECOMMENDATIONS: Additional mammographic views of the RIGHT breast including 3D spot compression CC/MLO. RIGHT breast ultrasound may also be required. BI-RADS Category 0: Incomplete: Need Additional Imaging Evaluation and/or Prior Mammograms for Comparison [facility] will contact the patient. A lay language report of this examination will be provided to the patient. Dictated by Lonny Gandara MD @ 05/07/2023 8:53:26 AM/KOKO:cindy PT/Dictated by: Lonny Gandara MD @ 05/07/2023 8:53:00 AM (Electronically Signed)
== END 2023-05-06 13:01 | disposition home or self-care (01) ==
LOC: MAMMO 13:00
PROVIDERS: PCP Family Medicine; Visit Provider Family Medicine
DX: Z12.31 Encounter for screening mammogram for malignant neoplasm of breast (principal); N63.10 Unspecified lump in the right breast, unspecified quadrant; R92.2 Inconclusive mammogram
CPT/HCPCS: 77063; 77067

== ENCOUNTER 2023-05-13 07:39 | Outpatient (CLI) | payer OTHER, SELFPAY ==
--- OUTSIDE RECORDS SUMMARY | 2023-05-13 07:42 | XMS_ITS | Patient Health Record ---
Author Name Unknown Organization [facility] Address [address] [place], [place] [id number] Care Team Providers Care Dust Puller Name Role Phone ChasdreYarelis Primary Care Provider REASON FOR REFERRAL No Information MEDICATIONS Medication SIG (Take, Route, Frequency, Duration) Notes Start Date End Date Status Diflucan 150 MG 1 tablet Orally Once a day for 2 days 06/09/2018 Active Percocet 5-325 MG 1 tablet as needed Orally every 6 hrs Not-Taking oxyBUTYnin d/c'd on 03/19/2018 Not-Taking Synthroid 200 MCG 1 tablet on an empty stomach in the morning Orally Once a day for 30 day(s) Active Singulair 10 MG 1 tablet Orally Once a day for 30 day(s) Active Paxil 20 MG 1 tablet in the morning Orally Once a day for 30 day(s) Active Ibuprofen 600mg 1 tab oral every 6 hours as needed Active SOCIAL HISTORY Tobacco Use: Social History Observation Description Date Details (start date - stop date) Never Smoker NA - NA Sex Assigned At : Social History Observation Description Sex Assigned At Unknown Tobacco Use/Smoking Question Answer Notes Are you a nonsmoker Alcohol Screen (Audit-C) Question Answer Notes Did you have a drink contain ing alcohol in the past year? Yes How often did you have a dri nk containing alcohol in the past year? 2 to 4 times a month (2 points) Points 2 Interpretation Negative Sexual History Question Answer Notes Had sex in the past 12 months (vaginal, oral, or anal)? Yes with Men only Prevention strategies discussed: Condoms Have you ever had a Sexually transmitted disease ? Yes Other? Yes PROBLEMS Problem Type ICD Code Onset Dates Problem Status W/U Status Risk SNOMED Code Notes Problem Stress incontinence (female) (male) (N39.3) Active confirmed 17063998 Problem Rectocele (N81.6) Active confirmed 292869016 Problem Incomplete defecation (R15.0) Active confirmed 275108337 Problem Full incontinence of feces (R15.9) Active confirmed 278417664078787 Problem Vaginal discharge (N89.8) Active confirmed Vaginal dischar ge (362467957) Problem Urge incontinence of urine (N39.41) Active confirmed 11207003 Problem 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) Active confirmed 448456278 Problem Urge urinary incontinence (N39.41) Active confirmed Urge urinary incontinence (14669065) Problem Uterovaginal prolapse, incomplete (N81.2) Active confirmed 077603220 Problem Urge incontinence of urine (788.31) Active confirmed 60485368 Problem Fecal soiling due to fecal incontinence (R15.9) Active confirmed [id number] PLAN OF TREATMENT No Information Insurance Providers Payer Name Payer Address Payer Phone Subscriber Number Group Number Insured Name Patient Relationship to Insured Coverage Start Date Coverage End Date Preferred One HMO [address] [address] [place], [place] [id number] Tez Blair Self - patient is the insured MEDICAL (GENERAL) HISTORY Medical History History ICD Code High Cholesterol Bladder Infections Chicken pox Migraines Depression/ Anxiety Asthma Pneumonia Thyroid Problem Surgical History Surgery Date(Month/Year) Jaw Surgery 03/1997 MIDURETHRAL SLING, CYSTOSCOPY, RECTOCELE REPAIR with Dr Torres 05/26/2018
--- NOTE | 2023-05-13 07:45 | CRLHL7_ITS ---
For Patients: As a result of the Cures Act, medical imaging exams and procedure reports are released immediately into your electronic medical record. You may view this report before your referring provider. If you have questions, please contact your health care provider. DIGITAL DIAGNOSTIC RIGHT MAMMOGRAM USING TOMOSYNTHESIS AND COMPUTER-AIDED DETECTION RIGHT BREAST ULTRASOUND CLINICAL HISTORY: RIGHT breast mass/asymmetry. COMPARISON: 05/06/2023, 04/23/2022, 04/20/2020. TECHNIQUE: Digital RIGHT mammogram in two projections. Tomosynthesis and CAD utilized. Real-time ultrasound imaging of RIGHT breast with imaging documentation. BREAST COMPOSITION: The breast is heterogeneously dense, which may obscure small masses. FINDINGS: 3D spot compression CC/MLO RIGHT breast mammogram images submitted. Persistent nodular density within the medial RIGHT breast without architectural distortion. No suspicious calcifications. Targeted RIGHT breast ultrasound performed 2 o`clock 2 cm from the nipple. There is a hypoechoic solid nodule measuring 1.2 x 0.9 x 1.1 cm. IMPRESSION: Indeterminate 1.2 cm nodule RIGHT breast 2 o`clock 2 cm from the nipple. RECOMMENDATIONS: Ultrasound-guided core needle biopsy. Results and recommendations discussed with the patient. BI-RADS Category 4: Suspicious A lay language report of this examination will be provided to the patient. Dictated by Lonny Gandara MD @ 05/13/2023 12:43:18 PM /Dictated by: Lonny Gandara MD @ 05/13/2023 12:43:00 PM (Electronically Signed)
--- NOTE | 2023-05-13 08:15 | CRLHL7_ITS ---
For Patients: As a result of the Cures Act, medical imaging exams and procedure reports are released immediately into your electronic medical record. You may view this report before your referring provider. If you have questions, please contact your health care provider. PLEASE SEE DIGITAL DIAGNOSTIC RIGHT MAMMOGRAM PERFORMED SAME DAY CRL:[email or web address] maxwell/Dictated by: Lonny Gandara MD @ 05/13/2023 12:43:00 PM (Electronically Signed)
== END 2023-05-13 07:40 | disposition home or self-care (01) ==
LOC: MAMMO 07:40
PROVIDERS: PCP Family Medicine; Visit Provider Obstetrics & Gynecology
DX: N63.10 Unspecified lump in the right breast, unspecified quadrant (principal); R92.8 Other abnormal and inconclusive findings on diagnostic imaging of breast
CPT/HCPCS: 76642; 77065; G0279

== ENCOUNTER 2023-05-20 08:05 | Outpatient (CLI) | payer OTHER, SELFPAY ==
--- OUTSIDE RECORDS SUMMARY | 2023-05-20 08:07 | XMS_ITS | Patient Health Record ---
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 Name Role Phone ChasdreYarelis Primary Care Provider [...] Stress incontinence (female) (male) (N39.3) Active confirmed 41529852 Problem Rectocele (N81.6) Active confirmed 442329392 Problem Incomplete defecation (R15.0) Active confirmed 583208820 Problem Full incontinence of feces (R15.9) Active confirmed 092575457829901 Problem Vaginal discharge (N89.8) Active confirmed Vaginal dischar ge (989317791) Problem Urge incontinence of urine (N39.41) Active confirmed 14397732 Problem 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) Active confirmed 133987463 Problem Urge urinary incontinence (N39.41) Active confirmed Urge urinary incontinence (92045816) Problem Uterovaginal prolapse, incomplete (N81.2) Active confirmed 191939815 Problem Urge incontinence of urine (788.31) Active confirmed 98877146 Problem Fecal soiling due to fecal incontinence (R15.9) Active confirmed [id number] PLAN OF TREATMENT No Information Insurance Providers Payer Name Payer Address Payer Phone Subscriber Number Group Number Insured Name Patient Relationship to Insured Coverage Start Date Coverage End Date [employer] [address] [address] [place], [place] [id number] Tez Blair Self - patient is the insured MEDICAL (GENERAL) HISTORY Medical History History ICD Code High Cholesterol Bladder Infections Chicken pox Migraines Depression/ Anxiety Asthma Pneumonia Thyroid Problem Surgical History Surgery Date(Month/Year) Jaw Surgery 03/1997 MIDURETHRAL SLING, CYSTOSCOPY, RECTOCELE REPAIR with Dr Torres 05/26/2018
--- NOTE | 2023-05-20 08:15 | CRLHL7_ITS ---
For Patients: As a result of the Century Cures Act, medical imaging exams and procedure reports are released immediately into your electronic medical record. You may view this report before your referring provider. If you have questions, please contact your health care provider. ULTRASOUND-GUIDED BREAST BIOPSY AND POST-BIOPSY DIGITAL MAMMOGRAM FOR BIOPSY MARKER PLACEMENT CLINICAL HISTORY: Indeterminate nodule. COMPARISON STUDIES: 05/13/2023. TECHNIQUE: Real-time ultrasound with image documentation was used for targeting the breast lesion. Core biopsy specimens were obtained using an automated gun with a 18-gauge biopsy needle. Post-biopsy CC and ML digital mammograms were obtained to document position of the biopsy marker. CONSENT and TIME OUT: The procedure, risks, and alternatives were explained to the patient and a consent was signed. [place] Protocol was followed including pre-procedure verification that relevant information/documentation was available, reviewed and properly matched to the patient; consent accurate and complete; and equipment and supplies available. Time Out was conducted just prior to starting procedure to verify the four required elements: patient identity, correct side/site marked (if applicable), procedure, relevant images/results properly labeled and displayed (if applicable). PROCEDURE: The patient was positioned supine on the ultrasound table. The breast was prepped with ChloraPrep. 8 cc of 1 percent lidocaine was used for local anesthesia. Core samples were obtained. A sterile metal biopsy clip was placed percutaneously to maria del rosario the lesion position within the breast. The specimens were placed in 10% formalin and sent to the pathology department. Pressure was held on the biopsy site until all bleeding subsided. The skin incision was closed with Steri-Strips. An ice pack was positioned over the biopsy site. Post-biopsy instructions were reviewed with the patient, and a written copy was given to her. LATERALITY: RIGHT breast. LESION: Hypoechoic nodule measuring 1.2 x 0.9 x 1.1 cm at 2 o`clock 2 cm from the nipple. SUSPICION FOR MALIGNANCY: Medium, possible fibroadenoma. NUMBER OF SAMPLES: 5. BIOPSY CLIP SHAPE: Oval. PROXIMITY OF CLIP TO TARGET: Within the lesion. IMPRESSION: Ultrasound-guided breast biopsy. When the pathology report is available, an addendum to this report will be made. ACR not applicable Dictated by Lonny Gandara MD @ 05/20/2023 11:17:19 AM jj/Dictated by: Lonny Gandara MD @ 05/20/2023 11:17:00 AM ADDENDUM: Pathology consistent with proliferative fibrocystic change including cyst wall and fibroadenomatoid change with usual ductal hyperplasia. No evidence of atypia or malignancy. This is concordant. Routine annual screening mammography recommended. Dictated by: Lonny Gandara MD @05/22/2023 12:20:12 PM / CRL:alissa (Electronically Signed)
--- NOTE | 2023-05-20 09:00 | CRLHL7_ITS ---
For Patients: As a result of the Century Cures Act, medical imaging exams and procedure reports are released immediately into your electronic medical record. You may view this report before your referring provider. If you have questions, please contact your health care provider. PLEASE SEE ULTRASOUND-GUIDED RIGHT BREAST BIOPSY PERFORMED SAME DAY CRL:[email or web address] maxwell/Dictated by: Lonny Gandara MD @ 05/20/2023 10:17:00 AM (Electronically Signed)
== END 2023-05-20 08:06 | disposition home or self-care (01) ==
PROVIDERS: PCP Family Medicine; Visit Provider Obstetrics & Gynecology
DX: N63.10 Unspecified lump in the right breast, unspecified quadrant (principal); R92.8 Other abnormal and inconclusive findings on diagnostic imaging of breast; D24.1 Benign neoplasm of right breast
CPT/HCPCS: 19083; 77065; 88305; A4648; A4649

== ENCOUNTER 2023-09-09 12:56 | Outpatient (CLI) | payer OTHER, SELFPAY ==
--- NOTE | 2023-09-09 13:00 | US_ITS ---
Patient: BALDEV DENT Facility:?[facility] Patient ID:?[id number] Site Patient ID:?[id number]. Site :?[id number] Study:?US-OB Pelvis TA/TV Pelvic US-09/09/2023 2:13:03 PM Ordering Physician:Clarita Mendez Final Report: INDICATION: Dysfunctional uterine bleeding. TECHNIQUE: Transabdominal and transvaginal pelvic ultrasound. FINDINGS: Uterus is anteverted and measures 6.8 x 3.4 x 4.7 cm. Normal endometrial stripe thickness of 6 mm. Incidental subcentimeter myometrial cyst. Right ovary contains a 4.2 cm simple cyst/dominant follicle. Ovaries are otherwise unremarkable. Minimal pelvic free fluid. No adnexal mass. IMPRESSION: Normal pelvic ultrasound. Dictated by Daniel Vela MD @ 09/10/2023 8:13:56 AM Signed by:?Daniel Vela MD @09/10/2023 8:13:56 AM (Electronic Signature)
== END 2023-09-09 12:57 | disposition home or self-care (01) ==
LOC: US 12:56
PROVIDERS: PCP Family Medicine; Visit Provider Registered Nurse
DX: N93.9 Abnormal uterine and vaginal bleeding, unspecified (principal)
CPT/HCPCS: 76830; 76856

== ENCOUNTER 2024-01-27 09:13 | Outpatient (CLI) | payer OTHER, SELFPAY | END 2024-01-27 09:14 | disposition home or self-care (01) | LOC: NFLDREF 09:13 | PROVIDERS: PCP Family Medicine; Visit Provider Obstetrics & Gynecology | DX: Z01.419 Encounter for gynecological examination (general) (routine) without abnormal findings (principal); E03.9 Hypothyroidism, unspecified | CPT/HCPCS: 84443 ==

== ENCOUNTER 2024-06-15 08:52 | Outpatient (CLI) | payer OTHER, SELFPAY ==
--- NOTE | 2024-06-15 09:15 | CRLHL7_ITS ---
For Patients: As a result of the Century Cures Act, medical imaging exams and procedure reports are released immediately into your electronic medical record. You may view this report before your referring provider. If you have questions, please contact your health care provider. BILATERAL SCREENING MAMMOGRAM WITH COMPUTER-AIDED DETECTION AND TOMOSYNTHESIS TECHNIQUE: CC and MLO views were obtained. These mammographic images have been obtained using full-field digital technique. These mammographic images were interpreted with the benefit of computer-aided detection. Breast Tomosynthesis was used in this interpretation. COMPARISON FILM: 05/06/23, 04/23/22, 04/21/21. FINDINGS: The breasts are heterogeneously dense, which may obscure small masses IMPRESSION: There is no radiographic evidence for malignancy. ASSESSMENT: BI-RADS Category 2: Benign RECOMMENDATION: Routine screening mammogram in 1 year. A lay language report of this examination will be provided to the patient. Lonny Gandara M.D. Diagnostic Radiologist [email or web address]/[email or web address] Transcribed: 3:39 p.mDena maxwell/Dictated by: Lonny Gandara MD @ 06/15/2024 10:28:00 AM (Electronically Signed)
== END 2024-06-15 08:53 | disposition home or self-care (01) ==
LOC: MAMMO 08:53
PROVIDERS: PCP Family Medicine; Visit Provider Obstetrics & Gynecology
DX: Z12.31 Encounter for screening mammogram for malignant neoplasm of breast (principal); R92.333 Mammographic heterogeneous density, bilateral breasts
CPT/HCPCS: 77063; 77067

== ENCOUNTER 2025-04-14 13:46 | Outpatient (CLI) | payer OTHER, SELFPAY | END 2025-04-14 13:47 | disposition home or self-care (01) | LOC: NFLDREF 13:48 | PROVIDERS: PCP Family Medicine; Visit Provider Registered Nurse | DX: R32 Unspecified urinary incontinence (principal) | CPT/HCPCS: 87086 ==

== ENCOUNTER 2025-06-21 13:53 | Outpatient (CLI) | payer OTHER, SELFPAY ==
--- NOTE | 2025-06-21 14:00 | CRLHL7_ITS ---
For Patients: As a result of the Century Cures Act, medical imaging exams and procedure reports are released immediately into your electronic medical record. You may view this report before your referring provider. If you have questions, please contact your health care provider. INDICATION: BILATERAL SCREENING MAMMOGRAM, ASYMPTOMATIC 45 Y/O FEMALE COMPARISON: 06/15/2024, 05/13/2023, 05/06/2023 TECHNIQUE: Digital mammogram in CC and MLO projections including computer-aided detection (CAD) and tomosynthesis. BREAST COMPOSITION: The breasts are heterogeneously dense, which may obscure small masses. FINDINGS: No suspicious findings. ASSESSMENT: BI-RADS 1 Negative RECOMMENDATION: Annual screening mammogram. A lay language report of this examination will be provided to the patient. Dictated by: Stephanie Rubio MD @ 06/22/2025 13:42:26 (Electronically Signed)
== END 2025-06-21 13:54 | disposition home or self-care (01) ==
LOC: MAMMO 13:54
PROVIDERS: PCP Family Medicine; Visit Provider Family Medicine
DX: Z12.31 Encounter for screening mammogram for malignant neoplasm of breast (principal); R92.333 Mammographic heterogeneous density, bilateral breasts
CPT/HCPCS: 77063; 77067